=== PATIENT | female | born 2005 | race Caucasian/White ===

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

== ENCOUNTER → 2023-01-18 14:27 | Outpatient (BNVA) | payer BC, MEDICAID, SELFPAY | PROVIDERS: PCP Nurse Practitioner Family; Visit Provider Obstetrics & Gynecology | DX: Z34.90 Encounter for supervision of normal pregnancy, unspecified, unspecified trimester (principal) | CPT/HCPCS: 81000; 87086 ==

== ENCOUNTER → 2023-02-10 09:30 | Outpatient (BNVA) | payer BC, MEDICAID, SELFPAY | PROVIDERS: PCP Nurse Practitioner Family; Visit Provider Obstetrics & Gynecology | DX: Z34.90 Encounter for supervision of normal pregnancy, unspecified, unspecified trimester (principal) | CPT/HCPCS: 81000; 82950; 85025 ==

== ENCOUNTER → 2023-02-24 10:22 | Outpatient (BNVA) | payer BC, MEDICAID, SELFPAY | PROVIDERS: PCP Nurse Practitioner Family; Visit Provider Obstetrics & Gynecology | DX: Z34.90 Encounter for supervision of normal pregnancy, unspecified, unspecified trimester (principal) | CPT/HCPCS: 81000; 87086 ==

== ENCOUNTER → 2023-03-10 10:00 | Outpatient (BNVA) | payer BC, MEDICAID, SELFPAY | PROVIDERS: PCP Nurse Practitioner Family; Visit Provider Obstetrics & Gynecology | DX: Z34.90 Encounter for supervision of normal pregnancy, unspecified, unspecified trimester (principal); R82.90 Unspecified abnormal findings in urine | CPT/HCPCS: 81000; 87086 ==

== ENCOUNTER → 2023-03-27 10:20 | Outpatient (BNVA) | payer BC, MEDICAID, SELFPAY | PROVIDERS: PCP Nurse Practitioner Family; Visit Provider Obstetrics & Gynecology | DX: Z34.90 Encounter for supervision of normal pregnancy, unspecified, unspecified trimester (principal) | CPT/HCPCS: 81000; 85025 ==

== ENCOUNTER → 2023-04-10 10:17 | Outpatient (BNVA) | payer BC, MEDICAID, SELFPAY | PROVIDERS: PCP Nurse Practitioner Family; Visit Provider Obstetrics & Gynecology | DX: Z34.90 Encounter for supervision of normal pregnancy, unspecified, unspecified trimester (principal) | CPT/HCPCS: 81000; 87081 ==

== ENCOUNTER → 2023-04-17 09:14 | Outpatient (BNVA) | payer BC, MEDICAID, SELFPAY | PROVIDERS: PCP Nurse Practitioner Family; Visit Provider Obstetrics & Gynecology | DX: Z34.90 Encounter for supervision of normal pregnancy, unspecified, unspecified trimester (principal) | CPT/HCPCS: 81000 ==

== ENCOUNTER 2023-04-28 05:20 | Inpatient (IN) | payer BC, MEDICAID, SELFPAY ==
[2023-04-28] VITALS (31 sets, daily range): BP systolic 104–136; BP diastolic 38–77; PULSE 67–86; RESP 16–18; TEMP 36.7–37; O2SAT 96–100; BMI 41.1
[2023-04-28 06:51] LABS: Basophils # 0.1 10^3/uL (0.0-0.1); Basophils % 0.6 %; Eosinophils # 0.1 10^3/uL (0.0-0.8); Eosinophils % 0.7 %; Hematocrit 38.9 % (36-47); Lymphocytes # 3.5 10^3/uL (1.5-6.5); Lymphocytes % 20.8 %; Mean Corpuscular HGB Conc 32.9 g/dL (30-55); Mean Corpuscular Hemoglobin 29.2 pg (27-33); Mean Corpuscular Volume 88.8 fl (85-98); Mean Platelet Volume 9.8 fL (7.4-10.4); Monocytes # 1.2 10^3/uL (0.2-0.9); Monocytes % 7.3 %; Neutrophils # 11.75 10^3/uL (1.8-8.0); Neutrophils % 70.1 %; Nucleated Red Blood Cells % 0 %; Platelet Count 347 10^3/cmm (157-399); Red Blood Count 4.38 10^6/uL (3.85-5.65); Red Cell Distribution Width 15.8 % (12.1-15.1); White Blood Count 16.76 10^3/uL (4.5-13.0)
--- NOTE | 2023-04-28 06:55 | ANES.PREANE2 ---
Pre-Anesthetic Assessment Height/Weight: Height 1.57 m Pulse BP 82 128/73 04/28/23 05:46 04/28/23 05:46 Preop Diagnosis: breech presentation Operation Date: 04/28/23 07:00 Proposed Procedures p Section 34745,O32.1XX0(Not Applicable) - Owen Michel MD Familial anesthetic complications: none Last intake: 219904/27/22 food and drink Social No alcohol and No tobacco Exam alert, No oriented x 3, No clear to auscultation bilaterally and No regular rate & rhythm Airway Submandibular: within normal limits Cervical ROM: within normal limits Mallampati: Class I Dentition: full Pulmonary None reported CV/HEM None reported None reported Hepatic None reported GI Gastroesophageal Reflux Disease Metabolic Thyroid Disease [facility] None reported Neuropsych Anxiety and Depression Anesthetic Plan ASA status: 2 Anesthesia: Regional (specify below) (SAB) Medications/Allergies Home Medications Medication Instructions Recorded Confirmed Last Taken Type famotidine 20 mg tablet (Pepcid) 20 mg PO DAILY 10/27/22 04/24/23 Unknown History levothyroxine 50 mcg capsule 50 mcg PO DAILY #90 caps 11/30/22 04/24/23 Unknown Rx ferrous sulfate 325 mg (65 mg 325 mg PO DAILY 02/24/23 04/24/23 Unknown History iron) tablet,delayed release Allergies Allergy/AdvReac Type Severity Reaction Status Date / Time acetaminophen Allergy Severe HALLUCINATI Verified 04/24/23 08:17 ON insect venom Allergy Severe anaphylaxis Verified 04/24/23 08:17 [facility] Anesthesia Medical History Anxiety Dx'd at age 14; inpatient psychiatric treatment. Zoloft has helped her depression but not really her anxiety. She has never been on anything specifically for anxiety. Duodenitis Generalized anxiety disorder Hematochezia No pertinent past medical history neghx: htn, dm, thyroid, dtv/pe PCP: Wendi Campbell Recurrent major depression in partial remission Supervision of normal Surgical History History of tonsillectomy and adenoidectomy (~03/2021) Normal colonoscopy Family History Grandfather Diabetes Maternal Cancer Paternal--lung Hyperlipidemia Hypertension Colon cancer paternal Grandmother Diabetes Maternal Hyperlipidemia Hypertension Stroke Maternal Denies family history of Ovarian cancer CAD (coronary artery disease) Clotting disorder Chronic kidney disease (CKD) Breast cancer Bleeding disorder Uterine cancer Thyroid disease Social History Smoking and tobacco status: former smoker Adopted: No Data Anesthesia 04/28/23 05:55 Short CBC 04/28/23 Range/Units 05:55 WBC 16.76 H (4.5-13.0) 10^3/uL Hgb 12.80 (12.4-14.8) g/dL Hct 38.9 (36-47) % MCV 88.8 (85-98) fl Plt Count 347 (157-399) 10^3/cmm Neut % (Auto) 70.1 % Neut # (Auto) 11.75 H (1.8-8.0) 10^3/uL Cardiac Studies: No Data to Display
--- NOTE | 2023-04-28 06:56 | PM.OPHPUD ---
Labor & Delivery H&P Update Date of Procedure: April 28, 2023 Date H&P Performed: 04/17/23 H&P update information: I have reviewed H&P completed within last 30 days, I have examined patient prior to procedure and No changes to prior documentation Admission Diagnosis: Term Breech presentation Primary indication for procedure: Breech presentation Planned procedure: Operation Date: 04/28/23 07:00 Proposed Procedures p Section 76212,O32.1XX0(Not Applicable) - Owen Michel MD
[2023-04-28] MEDS: lactated ringers 1,000 ML 125 ML IV (07:38)
[2023-04-28] MEDS: citric acid-sodium citrate 30 mL UDC PO (07:47)
[2023-04-28] MEDS: famotidine 20 mg/2 mL INJ IVP (07:47)
[2023-04-28] MEDS: metoclopramide 5 mg/mL SDV 2 mL 10 MG IVP (07:47)
[2023-04-28] MEDS: ceFAZolin 2,000 MG in sodium chloride 0.9% (plus) 50 ML 100 MG IV (07:49)
--- NOTE | 2023-04-28 09:29 | PM.OP ---
Operative Report Date of procedure: April 28, 2023 Pre-op diagnosis: Term . Breech presentation Post-op diagnosis: Same as above Post-op findings: Breech female Procedure done: Primary low transverse delivery Surgeon: Owen Michel MD Estimated blood loss (mL): 600 IV fluids (mL): 1,000 Urine output (mL): 300 Complications: None Procedure: After assuring informed consent, the patient was taken to the operating room and anesthesia was initiated. She was placed in the dorsal supine position with a left lateral tilt. The abdomen was prepped and draped in the usual sterile manner. A time-out procedure was performed. Preop antibiotics was administered. A Pfannenstiel skin incision was made with the scalpel and carried through to the underlying layer of fascia with the Bovie. The fascia was nicked in the midline and the incision extended laterally with the Muniz scissors. The superior aspect of the fascial incision was then grasped with Chepe clamps and elevated and the underlying rectus muscle dissected off bluntly. Attention was then turned to the inferior aspect of the incision which, in similar fashion, was grasped and tented up with Chepe clamps and the rectus muscle dissected bluntly. The rectus muscles were then in the midline and the peritoneum identified, tented up and entered sharply with Metzenbaum scissors. The peritoneal incision was then extended superiorly and inferiorly with good visualization of the bladder. The Jean Marie O retractor was then inserted and the vesicouterine peritoneum identified, grasped with pickups and entered sharply with Metzenbaum scissors. This incision was then extended laterally and the bladder flap created digitally. The uterus incised in a low transverse fashion with the scalpel. The uterine incision was then extended with the bandage scissors. The infant was then delivered in the breec presentation atraumatically buttocks appeared on the incision. While supporting the body, then pressure was exerted in the popliteal space of the knee. Then flexion of the knee follows, and the lower leg is swept medially down and out of the vagina using the Pinard maneuver. At that time time maternal expulsive efforts used along with gentle downward and outward traction of the infant until the scapula and axilla are visible. With a towel grasping the hips, I kept the body below the level of the vagina and gently rotated the baby counterclockwise and then clockwise, with the shoulder blades showing. Using a free hand, I found the right shoulder and swept the upper arm down across the chest and out. I did the same with the left shoulder. With constant uterine pressure to keep the head flexed, I suctioned the oropharynx. . The nose and the mouth were suctioned with bulb and the cord clamped and cut. The cord was normal and had three vessels. Amniotic fluid was clear. The placenta was then removed manually and the uterus exteriorized and cleared of all clots and debris. The uterine incision was repaired with 0 Vicryl in a running-locked fashion. A second layer of the same suture was used to obtain excellent hemostasis. The gutters were cleared of all clots. The uterus was then returned to the abdomen. The rectus muscles were approximated with 3-0 chromic gut. Exparel was infiltrated at the adipose tissue level for pain management. The fascia was reapproximated with 0 Vicryl in an interrupted running fashion. The skin was closed with Insorb?s subcuticular absorbable traci. The patient tolerated the procedure well. The sponge, lap and needle counts were correct times three.
--- NOTE | 2023-04-28 09:40 | PC.NURSE ---
patient in PACU. RN at bedside
--- NOTE | 2023-04-28 13:09 | ANE.PACU2 ---
Inpatient post-anesthesia follow up: Airway intact: Yes Vital signs: Temperature Pulse Rate 79 Respiratory Rate 17 Blood Pressure 109/56 Pulse Oximetry Oxygen Delivery Me thod Room Air Oxygen Flow Rate Fraction of Inspir ed Oxygen Hydration adequate: Yes Nausea and vomiting: No Pain level: 1 Mental status: Baseline
[2023-04-28] MEDS: ketorolac 30 mg/mL INJ IVP (15:52)
[2023-04-28] MEDS: dextrose 5%-lactated ringers 1,000 ML 125 ML IV (16:34)
[2023-04-28] MEDS: docusate sodium 100 mg Capsule PO (20:35)
[2023-04-28 21:56] LABS: Mean Corpuscular HGB Conc 31.9 g/dL (30-55); Mean Corpuscular Hemoglobin 28.8 pg (27-33); Mean Corpuscular Volume 90.2 fl (85-98); Mean Platelet Volume 9.6 fL (7.4-10.4); Platelet Count 297 10^3/cmm (157-399); Red Cell Distribution Width 15.7 % (12.1-15.1); White Blood Count 15.82 10^3/uL (4.5-13.0)
[2023-04-29] MEDS: sodium chloride 0.9% 500 ML 999 ML IV (02:17)
[2023-04-29 03:30] VITALS: BP 110/60; PULSE 84
[2023-04-29 03:56] VITALS: BP 110/60; PULSE 84; PULSE 89; RESP 16; TEMP 36.7; TEMP 36.8; O2SAT 96
[2023-04-29] MEDS: ketorolac 30 mg/mL INJ IVP (04:23)
[2023-04-29] MEDS: prenatal vitamin Capsule 1 CAP PO (09:06)
[2023-04-29] MEDS: ibuprofen 800 mg tablet PO ×3 (09:06→20:19)
[2023-04-29] MEDS: docusate sodium 100 mg Capsule PO ×2 (09:06→18:25)
[2023-04-29 09:14] VITALS: BP 111/63; PULSE 80; RESP 17; TEMP 36.4
--- NOTE | 2023-04-29 11:05 | PM.PN ---
Subjective Subjective: Mrs. Aagrwal 17-year-old female G1, P1 status post primary low-transverse delivery Vitals/I&O/Wt Last Vital Signs Temp 97.6 F 04/29/23 09:14 Pulse 80 04/29/23 09:14 Resp 17 04/29/23 09:14 BP 111/63 04/29/23 09:14 Pulse Ox 96 04/29/23 03:56 O2 Del Method Room Air 04/29/23 09:14 04/28/23 04/29/23 04/29/23 22:59 06:59 14:59 Output Total 395 / 1345 120 / 1465 Balance -395 / -1295 -120 / -1415 Weight last 48 hrs Weight 102.058 kg Physical Exam Narrative: GA; alert and oriented x 3 HEENT: normal Breasts: engorged Nipples - skin intact Lungs; clear to auscultation Heart: regular rhythm, no murmurs. Abd: Appropriately tender. BS+. Uterine fundus below umbilicus. No Fundal Tenderness. Incision clean and dry, no redness, pain or ed Perineum: normal lochia. Extremities: no edema, no cyanosis, no tenderness. Urinary Catheter Management: Guerrero: Cath Placed During This Visit: yes Reason for Continuing Indwelling Catheter: Accurate Measurement of Urinary Output in Critically Ill Patients Urinary Catheter Date of Insertion: 04/28/23 Urinary Catheter Time of Insertion: 08:15 Data 04/28/23 21:10 A&P Assessment and plan (1) Status post delivery: Mrs. Stefano Meza-year-old female G1, P1 status post primary low-transverse delivery postoperative day 1. She is afebrile and hemodynamically stable. Tolerating diet well. Ambulating without difficulty. Pain well under control. (2) Breech presentation of fetus: Plan Continue postop observation. Encourage ambulation. Plan discharge home tomorrow Attestations Medical Necessity Statement*: In my professional opinion per admitting diagnosis Coding Level of Care Code Acute Code for Chg Fwd Diagnoses Status post delivery Z98.891 Breech presentation of fetus O32.1XX0
[2023-04-29 11:46] LABS: Basophils # 0.1 10^3/uL (0.0-0.1); Basophils % 0.6 %; Eosinophils # 0.1 10^3/uL (0.0-0.8); Eosinophils % 0.8 %; Hematocrit 34.8 % (36-47); Lymphocytes # 2.2 10^3/uL (1.5-6.5); Lymphocytes % 16.7 %; Mean Corpuscular HGB Conc 32.5 g/dL (30-55); Mean Corpuscular Hemoglobin 29.4 pg (27-33); Mean Corpuscular Volume 90.4 fl (85-98); Mean Platelet Volume 9.3 fL (7.4-10.4); Monocytes % 7.6 %; Neutrophils # 9.65 10^3/uL (1.8-8.0); Neutrophils % 73.9 %; Nucleated Red Blood Cells % 0 %; Platelet Count 292 10^3/cmm (157-399); Red Blood Count 3.85 10^6/uL (3.85-5.65); Red Cell Distribution Width 15.8 % (12.1-15.1); White Blood Count 13.06 10^3/uL (4.5-13.0)
--- NOTE | 2023-04-29 13:41 | PC.NURSE ---
pt ambulating well, SCDs discontinued per protocol
[2023-04-29 16:07] VITALS: BP 115/62; PULSE 83
[2023-04-29] MEDS: HYDROcodone-acetaminophen 5-325 mg Tablet PO (16:23)
[2023-04-29 23:15] VITALS: BP 125/81; PULSE 64; RESP 16; TEMP 36.6; O2SAT 99
[2023-04-30] MEDS: HYDROcodone-acetaminophen 5-325 mg Tablet PO ×2 (01:20→06:24)
[2023-04-30 04:47] VITALS: BP 109/62; PULSE 65; RESP 16; TEMP 36.6; O2SAT 94
[2023-04-30 08:55] VITALS: BP 105/65; PULSE 63; RESP 17; TEMP 36.6
[2023-04-30] MEDS: ibuprofen 800 mg tablet PO (09:07)
[2023-04-30] MEDS: docusate sodium 100 mg Capsule PO (09:08)
[2023-04-30] MEDS: prenatal vitamin Capsule 1 CAP PO (09:08)
--- NOTE | 2023-04-30 10:44 | PC.NURSE ---
Patient reluctant to move, assisted patient with moving to chair.
--- NOTE | 2023-04-30 12:19 | PM.OBGYDC ---
Discharge Providers [employer]RA[employer]IER Date of Admission: 04/28/23 05:20 Date of Discharge: 04/30/23 Attending Provider at Admission: Owen Michel MD Attending Provider at Discharge: Owen Michel MD Primary FARMER AND GRAZIER: Dr. Tomas Vergara Primary Care Provider: STEPHANIE Lombardi Diagnoses at Discharge Discharge Diagnosis (1) Status post delivery: Status: Acute (2) Breech presentation of fetus: Status: Acute Reason for Visit Reason for Visit: Induction Hospital Course Hospital Course Mrs. Agarwal 17-year-old female G1, P0 with term admitted for planned primary low transverse delivery, due to breech presentation. The delivery was performed without complication. /postop observation was uneventful. She is afebrile hemodynamically stable postoperative day 2. Tolerating diet well. Ambulating without difficulty. She was counseled regarding pelvic rest for 6 weeks (no sex, no tampons, no vaginal douches). Return to the emergency room if any fever, increased bleeding or pain. Information Peripartum Data: Delivery Method: Physical Exam Narrative: GA; alert and oriented x 3 HEENT: normal Breasts: engorged Nipples - skin intact Lungs; clear to auscultation Heart: regular rhythm, no murmurs. Abd: Appropriately tender. BS+. Uterine fundus below umbilicus. No Fundal Tenderness. Incision clean and dry, no redness, pain or ed Perineum: normal lochia. Extremities: no edema, no cyanosis, no tenderness. Urinary Catheter Management: Guerrero: Cath Placed During This Visit: yes, but has since been removed by the nurse Reason for Continuing Indwelling Catheter: Decision to DC Catheter Urinary Catheter Date of Insertion: 04/28/23 Urinary Catheter Time of Insertion: 08:15 Date Urinary Catheter Removed: 04/29/23 Time Urinary Catheter Discontinued: 14:05 History History History 2 Term 0 0 Miscarriages/Ectopic 1 Living Children 0 Discharge Data Studies Completed and Pending Laboratory Results WBC 13.06 10^3/uL (4.5-13.0) H 04/29/23 11:40 RBC 3.85 10^6/uL (3.85-5.65) 04/29/23 11:40 Hgb 11.30 g/dL (12.4-14.8) L 04/29/23 11:40 Hct 34.8 % (36-47) L 04/29/23 11:40 MCV 90.4 fl (85-98) 04/29/23 11:40 MCH 29.4 pg (27-33) 04/29/23 11:40 MCHC 32.5 g/dL (30-55) 04/29/23 11:40 RDW 15.8 % (12.1-15.1) H 04/29/23 11:40 Plt Count 292 10^3/cmm (157-399) 04/29/23 11:40 MPV 9.3 fL (7.4-10.4) 04/29/23 11:40 Neut % (Auto) 73.9 % 04/29/23 11:40 Lymph % (Auto) 16.7 % 04/29/23 11:40 [place] % (Auto) 7.6 % 04/29/23 11:40 Eos % (Auto) 0.8 % 04/29/23 11:40 Baso % (Auto) 0.6 % 04/29/23 11:40 Neut # (Auto) 9.65 10^3/uL (1.8-8.0) H 04/29/23 11:40 Lymph # (Auto) 2.2 10^3/uL (1.5-6.5) 04/29/23 11:40 [place] # (Auto) 1.0 10^3/uL (0.2-0.9) H 04/29/23 11:40 Eos # (Auto) 0.1 10^3/uL (0.0-0.8) 04/29/23 11:40 Baso # (Auto) 0.1 10^3/uL (0.0-0.1) 04/29/23 11:40 Nucleated RBC % (auto) 0 % 04/29/23 11:40 Nucleated RBCs # 0.0 /100WBC 04/29/23 11:40 Blood Type A Positive 04/28/23 05:55 Rho(D) Type Positive 04/28/23 05:55 Antibody Screen Negative 04/28/23 05:55 Antibody Identification Cancelled 04/28/23 05:55 Vitals Last Vital Signs Temp 97.8 F 04/30/23 08:55 Pulse 63 04/30/23 08:55 Resp 17 04/30/23 08:55 BP 105/65 04/30/23 08:55 Pulse Ox 94 04/30/23 04:47 O2 Del Method Room Air 04/30/23 04:47 Discharge Plan Discharge Patient Disposition: Home Condition: Stable Prescriptions: New hydrocodone-acetaminophen 5-325 mg tablet 1 tab PO Q4H PRN (Reason: pain) Qty: 30 0RF ibuprofen 800 mg tablet 800 mg PO TID PRN (Reason: pain) Qty: 60 0RF Continued ferrous sulfate 325 mg (65 mg iron) tablet,delayed release (DR/EC) 325 mg PO DAILY famotidine [Pepcid] 20 mg tablet 20 mg PO DAILY levothyroxine 50 mcg capsule 50 mcg PO DAILY Qty: 90 5RF Discharge Orders: Discharge Order (Routine); Ordered 04/30/23 Ordered By: Owen Michel Referrals: Owen Michel MD [Physician] - 2 weeks Discharge Diet: Usual diet Discharge Activity: Limit activity as instructed Patient Instructions: Depression (DC), Bleeding (DC), Preeclampsia and Eclampsia After Delivery (GEN), OB Discharge Report, OB Food/Drug Interaction Guide, Opioid Safety, OB Home Care, OB Vaginal Deliveries - [facility] Activity Restrictions/Additional Instructions: 1. Please call [facility] on next working day to make your post-operative appointment in 2 weeks. 2. Please stay home until you come back to the clinic on first post-hospatilization check up. 3. Please follow instructions on your medications CAREFULLY. 4. If you have abdominal incision, do not cover it unless dressing is necessary because of drainage. OK to shower, but avoid bath. Leave steri-strips until they fall off. If they are still on one week after surgery, you may remove them. 5. If you had vaginal surgery or vaginal repair, Dr. Michel may instruct you to take SITZ bath. 6. Yellow, blood tinged odorous vaginal discharge is usually normal after hysterectomy or vaginal surgeries. 7. No SEXUAL INTERCOURSE, tampons, or douches until you are completely released from the post-operative care. 8. Avoid constipation by eating right and maybe using some Metamucil or Milk of Magnesia. 9. All prescription refills are given during the working hours. Please do no wait till it runs out. Call the clinic at [phone] before your medication runs out. The clinic will get in touch with your doctor to prescribe medications if necessary. 10. Please remain within 40 mile radius from our hospital because emergencies do happen now and then during the post-operative period. 11. If you have stairs at home, take one step at a time slowly and minimize the number of trips. It helps to stay in one floor for the next few days. No lifting except what you can lift by one hand until you are released from the post-operative care. 12. Driving is discouraged until you are well healed. It may be 3-4 weeks before you feel strong enough to drive. You should be able to turn and look through the rear window without pain and you should be able to push the brake pedal very hard without pain before you drive. No fast rules, but SAFETY should be your primary concern. DO NOT drive if you are on sedating medications such as narcotics. 13. Call the clinic (during working hours) to make urgent appointment or go to the Emergency room, if any of the following occurs: i. Vaginal bleeding becomes heavy, more than a period. ii. Incision becomes red and sore, or drains pus. iii. Your TEMPERATURE is over 100.4F or you have chill. iv. IV site becomes red and swollen (a little ``knot?? is usually OK) v. Persistent nausea and vomiting vi. Persistent constipation or diarrhea vii. Rash or allergic reaction to medications. Discharge Attestations [employer]IER Time Spent in Discharge Care*: greater than 30 min Coding Level of Care Code Acute Code for Chg Fwd Diagnoses Status post delivery Z98.891 Breech presentation of fetus O32.1XX0
[2023-04-30 14:30] VITALS: BP 116/80; PULSE 87; RESP 19; TEMP 37.6; O2SAT 96
== END 2023-04-30 14:45 | disposition home or self-care (01) | DRG 788 ==
PROVIDERS: Admitting Provider Obstetrics & Gynecology; PCP Nurse Practitioner Family; Visit Provider Obstetrics & Gynecology
PROC: 10D00Z1 Extraction of Products of Conception, Low, Open Approach (ICD-10-PCS; CPT 59514; principal; 2023-04-28 07:00)
DX: O32.1XX0 Maternal care for breech presentation, not applicable or unspecified (principal); Z3A.38 38 weeks gestation of pregnancy; Z37.0 Single live birth; K21.9 Gastro-esophageal reflux disease without esophagitis; O99.284 Endocrine, nutritional and metabolic diseases complicating childbirth; E03.9 Hypothyroidism, unspecified; O99.344 Other mental disorders complicating childbirth; F41.1 Generalized anxiety disorder; F33.41 Major depressive disorder, recurrent, in partial remission; Z87.891 Personal history of nicotine dependence; O75.89 Other specified complications of labor and delivery; Z3A.39 39 weeks gestation of pregnancy
CPT/HCPCS: 36415; 51702; 59025; 59409; 85025; 85027; 86850; 86900; 96374; 96376; C9290; J0690; J1885; J2274; J2371; J2405; J2765; J3490; J7030; J7040; J7120; J7121

== ENCOUNTER 2023-04-30 23:53 | Emergency (ER) | payer BC, MEDICAID, SELFPAY ==
--- NOTE | 2023-05-01 00:03 | XRR_ITS ---
PROCEDURE INFORMATION: Exam: XR Chest Exam date and time: 05/01/2023 12:23 AM Age: 17 years old Clinical indication: Cough and fever; Patient HX: Cough with fever; Additional info: Cough fever TECHNIQUE: Imaging protocol: Radiologic exam of the chest. Views: 1 view. COMPARISON: CT cervical spin wo con* [id number] 03/15/2019 11:57 PM FINDINGS: Lungs: No consolidation, mass, or pulmonary edema. Pleural spaces: Unremarkable. No pleural effusion. No pneumothorax. Heart/Mediastinum: Unremarkable. No cardiomegaly. Bones/joints: Unremarkable. XR/XR chest 1V portable [id number] IMPRESSION: No acute findings.
[2023-05-01 00:05] VITALS: BP 127/83; PULSE 100; TEMP 37.8; O2SAT 94; BMI 36.3
--- NOTE | 2023-05-01 00:20 | ED_ITS ---
Documented by User: BALDEMAR Shipman 05/01/23 01:13 HPI - Fever General: Chief Complaint: Fever Stated Complaint: Fever/Cough Time Seen by Provider: 05/01/23 00:02 History of Present Illness: Patient is status post section on 04/28/2023. Patient notes that that day she developed a nagging cough that was dry. This developed during her C- section that was performed that day. Patient was discharged home today with the . She had a fever of 99-100. Patient has developed this very wet productive cough with thick green sputum. She reports headache, sore throat and fever. Patient reports a history of hypothyroidism. Patient's for GERD She denies any chest pain shortness of breath She denies any nausea vomiting or diarrhea Denies any known COVID exposure Associated symptoms: Reports chills; Deny abdominal pain, flank pain, chest pain, confusion, diarrhea, dysuria, extremity pain, headache(s), nasal congestion, nausea, sinus pain or vomiting Review of Systems General: Reports: 10 or more systems reviewed and unremarkable except in HPI and below Const: Reports: fever(s), chills and fatigue; Denies: change in appetite or change in weight Eyes: Denies: change in vision, eye discomfort, eye discharge or eye redness ENMT: Denies: throat pain, enlarged tonsils, odynophagia, hoarseness, ear or mastoid pain, ear discharge, change in hearing, tinnitus, nasal discharge, nasal congestion, post nasal drip or sinus pain Card: Denies: chest pain, palpitations, irregular heart rhythm, edema, dyspnea on exertion, orthopnea or leg pain with exertion Resp: Reports: productive cough and change in phlegm color; Denies: dyspnea, non-productive cough, wheezing, stridor or chest congestion GI: Denies: abdominal pain, nausea, vomiting, dysphagia, diarrhea, constipation, bloating, GI cramping or hematochezia : Denies: flank pain, difficulty voiding, dysuria, urinary frequency, urinary urgency, urinary hesitancy, oliguria or hematuria Musc: Denies: neck pain, back pain, extremity pain, joint pain, joint swelling, joint redness, joint warmth or muscle weakness Skin/Breast: Denies: rash, pruritus, erythema, photosensitivity or new lesions Neuro: Denies: headache(s), numbness in extremities, weakness in extremities, sensory changes, lack of coordination, difficulty walking, frequent falls, dizziness, confusion, Slurred speech present, difficulty communicating thoughts, seizure-like activity or involuntary movements Endo: Denies: polyuria, polydipsia or tired all the time Kevin/Lymph: Denies: easy bruising or easy bleeding PFSH ED PFSH: Medical History Anxiety Dx'd at age 14; inpatient psychiatric treatment. Zoloft has helped her depression but not really her anxiety. She has never been on anything specifically for anxiety. Duodenitis Generalized anxiety disorder Hematochezia No pertinent past medical history neghx: htn, dm, thyroid, dtv/pe PCP: Wendi Campbell Recurrent major depression in partial remission Supervision of normal Surgical History History of tonsillectomy and adenoidectomy (~03/2021) Normal colonoscopy Family History Grandfather Diabetes Maternal Cancer Paternal--lung Hyperlipidemia Hypertension Colon cancer paternal Grandmother Diabetes Maternal Hyperlipidemia Hypertension Stroke Maternal Denies family history of Ovarian cancer CAD (coronary artery disease) Clotting disorder Chronic kidney disease (CKD) Breast cancer Bleeding disorder Uterine cancer Thyroid disease Social History Smoking and tobacco status: former smoker Adopted: No Physical Exam Const: COMMON NORMALS: no acute distress, patient oriented x3 and alert GENERAL APPEARANCE: cooperative ORIENTATION/CONSCIOUSNESS: Yes awake, Yes oriented to person, Yes oriented to place and Yes oriented to time HENMT: COMMON NORMALS: normocephalic and atraumatic HEAD & SCALP: normocephalic and atraumatic FACE & SINUS: normal facial exam MOUTH: Normal oral and palatal mucosa present THROAT: posterior oropharynx normal Eye: COMMON NORMALS: Equal, round and reactive pupils present, EOMs intact bilaterally, conjunctivae normal and no scleral icterus GENERAL EYE: appearance normal, both eyes and all related structures ALIGNMENT: Yes alignment normal PERIORBITAL: periorbital findings normal CONJUNCTIVA: Yes conjunctivae normal PUPIL: Yes Equal, round and reactive pupils present Neck/C-Spine: COMMON NORMALS: full ROM GENERAL: Yes normal visual inspection Lymph: LYMPHATIC: no lymphadenopathy noted Chest: COMMONS NORMALS: normal inspection of the chest Breast/axilla inspection: Yes no chest deformity, asymmetry, normal contours, no nodules, masses, tenderness Resp: COMMON NORMALS: normal respiratory effort, No retractions, No use of accessory muscles and clear to auscultation bilaterally EFFORT & INSPECTION: Yes able to speak in complete sentences and Yes symmetric chest movement AUSCULTATION: clear to auscultation bilaterally Cardio: COMMON NORMALS: regular rate, regular rhythm and Peripheral pulses 2+ throughout RATE: regular rate RHYTHM: regular rhythm PERIPHERAL PULSES: Peripheral pulses 2+ throughout GI: COMMON NORMALS: Normal to inspection, nondistended, normoactive bowel sounds present, Soft to palpation, non-tender and No hepatosplenomegaly present INSPECTION: Yes normal to inspection AUSCULTATION: Yes normoactive bowel sounds PALPATION: Yes Soft to palpation and Yes No hepatosplenomegaly present RECTAL EXAM: deferred Extremity: COMMON NORMALS: normal to inspection GENERAL: Yes normal exam except as noted Neuro: COMMON NORMALS: patient oriented x3 SENSORIUM/ORIENTATION: Yes alert, Yes oriented to person, Yes oriented to place and Yes oriented to time CRANIAL NERVES: Yes CN normal except as noted Psych: COMMON NORMALS: mental status grossly normal, Normal thought process present, cooperative, activity/motor behavior normal, denies homicidal ideation and denies suicidal ideation THOUGHT PROCESS: Normal thought process present Skin: COMMON NORMALS: no rashes or lesions noted, no wounds and turgor normal GENERAL SKIN EXAM: no rashes or lesions noted and turgor normal Course Vital Signs: Vital signs: Vital Signs Temperature 100.1 F H 05/01/23 00:05 Pulse Rate 100 05/01/23 00:05 Blood Pressure 127/83 05/01/23 00:05 Pulse Oximetry 94 05/01/23 00:05 Oxygen Delivery Me thod Room Air 05/01/23 00:05 MDM - Fever Medical Decision Making Was evaluated in the emergency department days status post section live . Patient presents today with cough, sputum production, and fever. Tmax at home was 100.9. Currently 100.1. Patient's fever was treated with ibuprofen due to allergy to Tylenol. Differential diagnosis pneumonia, COVID, viral illness. Patient underwent COVID testing as well as CBC CMP and chest x-ray. Chest x-ray reveals no acute findings, COVID test was negative and CBC reveals no leukocytosis. Lab Data 05/01/23 00:50 05/01/23 00:50 Radiology Impressions Chest X-Ray 05/01/23 00:03 IMPRESSION: No acute findings. Laboratory Results WBC 10.39 10^3/uL (4.5-13.0) 05/01/23 00:50 RBC 3.81 10^6/uL (3.85-5.65) L 05/01/23 00:50 Hgb 11.10 g/dL (12.4-14.8) L 05/01/23 00:50 Hct 34.7 % (36-47) L 05/01/23 00:50 MCV 91.1 fl (85-98) 05/01/23 00:50 MCH 29.1 pg (27-33) 05/01/23 00:50 MCHC 32.0 g/dL (30-55) 05/01/23 00:50 RDW 15.3 % (12.1-15.1) H 05/01/23 00:50 Plt Count 296 10^3/cmm (157-399) 05/01/23 00:50 MPV 9.4 fL (7.4-10.4) 05/01/23 00:50 Neut % (Auto) 70.4 % 05/01/23 00:50 Lymph % (Auto) 18.0 % 05/01/23 00:50 [place] % (Auto) 8.1 % 05/01/23 00:50 Eos % (Auto) 2.2 % 05/01/23 00:50 Baso % (Auto) 0.7 % 05/01/23 00:50 Neut # (Auto) 7.32 10^3/uL (1.8-8.0) 05/01/23 00:50 Lymph # (Auto) 1.9 10^3/uL (1.5-6.5) 05/01/23 00:50 [place] # (Auto) 0.8 10^3/uL (0.2-0.9) 05/01/23 00:50 Eos # (Auto) 0.2 10^3/uL (0.0-0.8) 05/01/23 00:50 Baso # (Auto) 0.1 10^3/uL (0.0-0.1) 05/01/23 00:50 Nucleated RBC % (auto) 0 % 05/01/23 00:50 Nucleated RBCs # 0.0 /100WBC 05/01/23 00:50 Sodium 138 mmol/L (136-145) 05/01/23 00:50 Potassium 3.7 mmol/L (3.5-5.1) 05/01/23 00:50 Chloride 105 mmol/L (98-107) 05/01/23 00:50 Carbon Dioxide 23 mmol/L (22-29) 05/01/23 00:50 Anion Gap 13.7 (5-19) 05/01/23 00:50 BUN 7 mg/dL (6-20) 05/01/23 00:50 Creatinine 0.7 mg/dL (0.5-0.9) 05/01/23 00:50 GFR Calculation 107.8 mL/min (90-130) 05/01/23 00:50 Glucose 96 mg/dL (65-115) 05/01/23 00:50 Calculated Osmolality 284 mOsm/kg (285-295) L 05/01/23 00:50 Calcium 8.6 mg/dL (8.5-10.5) 05/01/23 00:50 Total Bilirubin 0.2 mg/dL (0.15-1.2) 05/01/23 00:50 AST 13 U/L (0-32) 05/01/23 00:50 ALT 7 U/L (0-33) 05/01/23 00:50 Alkaline Phosphatase 108 U/L (35-105) H 05/01/23 00:50 Total Protein 5.8 g/dL (6.6-8.7) L 05/01/23 00:50 Albumin 3.3 g/dL (3.5-5.2) L 05/01/23 00:50 Globulin 2.5 g/dL (1.3-4.6) 05/01/23 00:50 SARS-CoV-2 Ag (Rapid) negative (Negative) 05/01/23 00:22 Discharge Plan Discharge Patient Disposition: Home Clinical Impression: Upper respiratory infection Condition: Stable Prescriptions: No Action ferrous sulfate 325 mg (65 mg iron) tablet,delayed release (DR/EC) 325 mg PO DAILY famotidine [Pepcid] 20 mg tablet 20 mg PO DAILY levothyroxine 50 mcg capsule 50 mcg PO DAILY Qty: 90 5RF ibuprofen 800 mg tablet 800 mg PO TID PRN (Reason: pain) Qty: 60 0RF hydrocodone-acetaminophen 5-325 mg tablet 1 tab PO Q4H PRN (Reason: pain) Qty: 30 0RF Discharge Orders: Discharge ED (Routine); Ordered 05/01/23 Ordered By: Anupam Pena Referrals: Tg Campbell FNP [Primary Care Provider] - 1-3 days Discharge Diet: Advance as tolerated Discharge Activity: Resume usual activity Patient Instructions: Upper Respiratory Infection (ED) Coding Level of Care Code ED Biology Instructor for Chg Fwd Documented by User: Anupam Pena MD 05/01/23 01:40 HPI - Fever General: Chief Complaint: Fever Stated Complaint: Fever/Cough Time Seen by Provider: 05/01/23 00:02 [facility] ED PFSH: Medical History Anxiety Dx'd at age 14; inpatient psychiatric treatment. Zoloft has helped her depression but not really her anxiety. She has never been on anything specifically for anxiety. Duodenitis Generalized anxiety disorder Hematochezia No pertinent past medical history neghx: htn, dm, thyroid, dtv/pe PCP: Wendi Campbell Recurrent major depression in partial remission Supervision of normal Surgical History History of tonsillectomy and adenoidectomy (~03/2021) Normal colonoscopy Family History Grandfather Diabetes Maternal Cancer Paternal--lung Hyperlipidemia Hypertension Colon cancer paternal Grandmother Diabetes Maternal Hyperlipidemia Hypertension Stroke Maternal Denies family history of Ovarian cancer CAD (coronary artery disease) Clotting disorder Chronic kidney disease (CKD) Breast cancer Bleeding disorder Uterine cancer Thyroid disease Social History Smoking and tobacco status: former smoker Adopted: No Course Vital Signs: Vital signs: Vital Signs Temperature 100.1 F H 05/01/23 00:05 Pulse Rate 100 05/01/23 00:05 Blood Pressure 127/83 05/01/23 00:05 Pulse Oximetry 94 05/01/23 00:05 Oxygen Delivery Me thod Room Air 05/01/23 00:05 MDM - Fever Medical Decision Making Was evaluated in the emergency department days status post section live . Patient presents today with cough, sputum production, and fever. Tmax at home was 100.9. Currently 100.1. Patient's fever was treated with ibuprofen due to allergy to Tylenol. Differential diagnosis pneumonia, COVID, viral illness. Patient underwent COVID testing as well as CBC CMP and chest x-ray. Chest x-ray reveals no acute findings, COVID test was negative and CBC reveals no leukocytosis. Patient presents here with likely viral upper respiratory infection x-ray blood works all normal she is stable for discharge she is follow-up PCP return if worsening Lab Data 05/01/23 00:50 05/01/23 00:50 Radiology Impressions Chest X-Ray 05/01/23 00:03 IMPRESSION: No acute findings. Laboratory Results WBC 10.39 10^3/uL (4.5-13.0) 05/01/23 00:50 RBC 3.81 10^6/uL (3.85-5.65) L 05/01/23 00:50 Hgb 11.10 g/dL (12.4-14.8) L 05/01/23 00:50 Hct 34.7 % (36-47) L 05/01/23 00:50 MCV 91.1 fl (85-98) 05/01/23 00:50 MCH 29.1 pg (27-33) 05/01/23 00:50 MCHC 32.0 g/dL (30-55) 05/01/23 00:50 RDW 15.3 % (12.1-15.1) H 05/01/23 00:50 Plt Count 296 10^3/cmm (157-399) 05/01/23 00:50 MPV 9.4 fL (7.4-10.4) 05/01/23 00:50 Neut % (Auto) 70.4 % 05/01/23 00:50 Lymph % (Auto) 18.0 % 05/01/23 00:50 [place] % (Auto) 8.1 % 05/01/23 00:50 Eos % (Auto) 2.2 % 05/01/23 00:50 Baso % (Auto) 0.7 % 05/01/23 00:50 Neut # (Auto) 7.32 10^3/uL (1.8-8.0) 05/01/23 00:50 Lymph # (Auto) 1.9 10^3/uL (1.5-6.5) 05/01/23 00:50 [place] # (Auto) 0.8 10^3/uL (0.2-0.9) 05/01/23 00:50 Eos # (Auto) 0.2 10^3/uL (0.0-0.8) 05/01/23 00:50 Baso # (Auto) 0.1 10^3/uL (0.0-0.1) 05/01/23 00:50 Nucleated RBC % (auto) 0 % 05/01/23 00:50 Nucleated RBCs # 0.0 /100WBC 05/01/23 00:50 Sodium 138 mmol/L (136-145) 05/01/23 00:50 Potassium 3.7 mmol/L (3.5-5.1) 05/01/23 00:50 Chloride 105 mmol/L (98-107) 05/01/23 00:50 Carbon Dioxide 23 mmol/L (22-29) 05/01/23 00:50 Anion Gap 13.7 (5-19) 05/01/23 00:50 BUN 7 mg/dL (6-20) 05/01/23 00:50 Creatinine 0.7 mg/dL (0.5-0.9) 05/01/23 00:50 GFR Calculation 107.8 mL/min (90-130) 05/01/23 00:50 Glucose 96 mg/dL (65-115) 05/01/23 00:50 Calculated Osmolality 284 mOsm/kg (285-295) L 05/01/23 00:50 Calcium 8.6 mg/dL (8.5-10.5) 05/01/23 00:50 Total Bilirubin 0.2 mg/dL (0.15-1.2) 05/01/23 00:50 AST 13 U/L (0-32) 05/01/23 00:50 ALT 7 U/L (0-33) 05/01/23 00:50 Alkaline Phosphatase 108 U/L (35-105) H 05/01/23 00:50 Total Protein 5.8 g/dL (6.6-8.7) L 05/01/23 00:50 Albumin 3.3 g/dL (3.5-5.2) L 05/01/23 00:50 Globulin 2.5 g/dL (1.3-4.6) 05/01/23 00:50 SARS-CoV-2 Ag (Rapid) negative (Negative) 05/01/23 00:22 Discharge Plan Discharge Patient Disposition: Home Clinical Impression: Upper respiratory infection Condition: Stable Prescriptions: No Action ferrous sulfate 325 mg (65 mg iron) tablet,delayed release (DR/EC) 325 mg PO DAILY famotidine [Pepcid] 20 mg tablet 20 mg PO DAILY levothyroxine 50 mcg capsule 50 mcg PO DAILY Qty: 90 5RF ibuprofen 800 mg tablet 800 mg PO TID PRN (Reason: pain) Qty: 60 0RF hydrocodone-acetaminophen 5-325 mg tablet 1 tab PO Q4H PRN (Reason: pain) Qty: 30 0RF Discharge Orders: Discharge ED (Routine); Ordered 05/01/23 Ordered By: Anupam Pena Referrals: Tg Campbell FNP [Primary Care Provider] - 1-3 days Discharge Diet: Advance as tolerated Discharge Activity: Resume usual activity Patient Instructions: Upper Respiratory Infection (ED) Coding Level of Care Code ED Biology Instructor for Li Steele
[2023-05-01] MEDS: ibuprofen 800 mg tablet PO (00:35)
[2023-05-01 01:02] LABS: Basophils # 0.1 10^3/uL (0.0-0.1); Basophils % 0.7 %; Eosinophils # 0.2 10^3/uL (0.0-0.8); Eosinophils % 2.2 %; Hematocrit 34.7 % (36-47); Lymphocytes # 1.9 10^3/uL (1.5-6.5); Mean Corpuscular Hemoglobin 29.1 pg (27-33); Mean Corpuscular Volume 91.1 fl (85-98); Mean Platelet Volume 9.4 fL (7.4-10.4); Monocytes # 0.8 10^3/uL (0.2-0.9); Monocytes % 8.1 %; Neutrophils # 7.32 10^3/uL (1.8-8.0); Neutrophils % 70.4 %; Nucleated Red Blood Cells % 0 %; Platelet Count 296 10^3/cmm (157-399); Red Blood Count 3.81 10^6/uL (3.85-5.65); Red Cell Distribution Width 15.3 % (12.1-15.1); White Blood Count 10.39 10^3/uL (4.5-13.0)
[2023-05-01 01:10] LABS: SARS Covid-2 Antigen negative (Negative)
[2023-05-01 01:22] LABS: Alanine Aminotransferase 7 U/L (0-33); Albumin Level 3.3 g/dL (3.5-5.2); Alkaline Phosphatase 108 U/L (35-105); Anion Gap 13.7 (5-19); Aspartate Amino Transferase 13 U/L (0-32); Blood Urea Nitrogen 7 mg/dL (6-20); Calcium 8.6 mg/dL (8.5-10.5); Carbon Dioxide 23 mmol/L (22-29); Chloride 105 mmol/L (98-107); Creatinine Clr Calc Pharmacy 150.8026; Globulin 2.5 g/dL (1.3-4.6); Glomerular Filtration Rate 107.8 mL/min (90-130); Glucose 96 mg/dL (65-115); Osmolality Calculated 284 mOsm/kg (285-295); Potassium 3.7 mmol/L (3.5-5.1); Sodium 138 mmol/L (136-145); Total Bilirubin 0.2 mg/dL (0.15-1.2); Total Protein 5.8 g/dL (6.6-8.7)
[2023-05-01 02:18] VITALS: PULSE 86; RESP 18; O2SAT 96
== END 2023-05-01 02:17 | disposition home or self-care (01) ==
PROVIDERS: Nurse Practitioner; Emergency Provider Emergency Medicine; PCP Nurse Practitioner Family
DX: J06.9 Acute upper respiratory infection, unspecified (principal); Z20.822 Contact with and (suspected) exposure to COVID-19; Z87.891 Personal history of nicotine dependence
CPT/HCPCS: 36415; 71045; 80053; 85025; 87426; 99284

== ENCOUNTER → 2023-05-02 13:09 | Outpatient (BNVA) | payer BC, MEDICAID, SELFPAY | PROVIDERS: PCP Nurse Practitioner Family; Visit Provider Nurse Practitioner Family | DX: Z11.52 Encounter for screening for COVID-19 (principal); R68.89 Other general symptoms and signs | CPT/HCPCS: 87400; 87426 ==

== ENCOUNTER → 2023-06-14 12:00 | Outpatient (BNVA) | payer BC, MEDICAID, SELFPAY | PROVIDERS: PCP Nurse Practitioner Family; Visit Provider Nurse Practitioner Women's Health | DX: Z30.431 Encounter for routine checking of intrauterine contraceptive device (principal); Z30.017 Encounter for initial prescription of implantable subdermal contraceptive | CPT/HCPCS: 81025 ==

== ENCOUNTER 2023-06-28 13:15 | Emergency (ER) | payer BC, MEDICAID, SELFPAY ==
--- NOTE | 2023-06-28 13:22 | W.ED.GENADLT ---
HPI - General Adult General: Stated complaint: ear pain, congestion Time Seen by Provider: 06/28/23 13:21 [facility] ED PFSH: Medical History (Updated 06/14/23 @ 13:10 by Viktoria Hoyt APN, BENEDICTO) Anxiety Dx'd at age 14; inpatient psychiatric treatment. Zoloft has helped her depression but not really her anxiety. She has never been on anything specifically for anxiety. Duodenitis No pertinent past medical history neghx: htn, dm, thyroid, dtv/pe PCP: Wendi Campbell Recurrent major depression in partial remission Surgical History History of tonsillectomy and adenoidectomy (~03/2021) Normal colonoscopy Status post delivery (~04/28/23) Primary LTCS performed by Dr. Michel at [facility]. Dx: term with breech presentation. Family History Grandfather Diabetes Maternal Cancer Paternal--lung Hyperlipidemia Hypertension Colon cancer paternal Grandmother Diabetes Maternal Hyperlipidemia Hypertension Stroke Maternal Denies family history of Ovarian cancer CAD (coronary artery disease) Clotting disorder Chronic kidney disease (CKD) Breast cancer Bleeding disorder Uterine cancer Thyroid disease Social History Smoking and tobacco/nicotine status: former use of tobacco/nicotine Adopted: No Discharge Plan Discharge Condition: Stable Prescriptions: No Action ferrous sulfate 325 mg (65 mg iron) tablet,delayed release (DR/EC) 325 mg PO DAILY sertraline [Zoloft] 50 mg tablet 50 mg PO DAILY Qty: 60 0RF lidocaine-epinephrine (PF) 2 %-1:200,000 solution 3 ml Infiltration ONCE Qty: 1 0RF Nexplanon 68 mg implant 1 implant subdermal ONCE Qty: 1 0RF Referrals: Tg Campbell FNP [Primary Care Provider] - Coding Level of Care Code ED Assignment Desk Assistant for Willisg Ivette
[2023-06-28 13:31] VITALS: BP 116/69; PULSE 90; RESP 18; TEMP 36.6; O2SAT 97; BMI 31.6
[2023-06-28 14:34] LABS: Influenza A by IFA negative (Negative); Influenza B by IFA negative (Negative)
[2023-06-28 14:35] LABS: SARS Covid-2 Antigen negative (Negative)
--- NOTE | 2023-06-28 14:52 | ED_ITS ---
HPI - URI/Sore Throat General: Chief Complaint: Upper Respiratory Infection Stated Complaint: ear pain, congestion Time Seen by Provider: 06/28/23 13:21 History of Present Illness: This patient is a 18-year-old white female who presents to the emergency department with congestion. She states that symptoms have been going on for the past several days. No fever. No cough. Patient has no chronic medical problems. Associated symptoms: Reports nasal congestion Review of Systems General: Reports: 10 or more systems reviewed and unremarkable except in HPI and below ENMT: Reports: nasal congestion PFSH ED PFSH: Medical History Anxiety Dx'd at age 14; inpatient psychiatric treatment. Zoloft has helped her depression but not really her anxiety. She has never been on anything specifically for anxiety. Duodenitis No pertinent past medical history neghx: htn, dm, thyroid, dtv/pe PCP: Wendi Campbell Recurrent major depression in partial remission Surgical History History of tonsillectomy and adenoidectomy (~03/2021) Normal colonoscopy Status post delivery (~04/28/23) Primary LTCS performed by Dr. Michel at [facility]. Dx: term with breech presentation. Family History Grandfather Diabetes Maternal Cancer Paternal--lung Hyperlipidemia Hypertension Colon cancer paternal Grandmother Diabetes Maternal Hyperlipidemia Hypertension Stroke Maternal Denies family history of Ovarian cancer CAD (coronary artery disease) Clotting disorder Chronic kidney disease (CKD) Breast cancer Bleeding disorder Uterine cancer Thyroid disease Social History Smoking and tobacco/nicotine status: former use of tobacco/nicotine Adopted: No Physical Exam Const: COMMON NORMALS: no acute distress, patient oriented x3 and no limitations GENERAL APPEARANCE: cooperative and comfortable HENMT: COMMON NORMALS: normocephalic, atraumatic, Normal nasal mucous membranes and turbinates present, moist oral mucous membranes and oropharynx normal HEAD & SCALP: normal to inspection, normocephalic and atraumatic FACE & SINUS: normal facial exam NOSE: Normal nasal mucous membranes and turbinates present Eye: COMMON NORMALS: Equal, round and reactive pupils present, EOMs intact bilaterally and conjunctivae normal GENERAL EYE: appearance normal, both eyes and all related structures CONJUNCTIVA: Yes conjunctivae normal PUPIL: Yes Equal, round and reactive pupils present Neck/C-Spine: COMMON NORMALS: supple and no JVD Chest: COMMONS NORMALS: normal inspection of the chest Resp: COMMON NORMALS: normal respiratory effort and clear to auscultation bilaterally AUSCULTATION: clear to auscultation bilaterally Cardio: COMMON NORMALS: no JVD, regular rate, regular rhythm, No gallops present (Cardio), No murmurs present (Cardio) and No rub (Cardio) RATE: regular rate RHYTHM: regular rhythm GI: COMMON NORMALS: Normal to inspection, nondistended, normoactive bowel sounds present, Soft to palpation and non-tender AUSCULTATION: Yes normoactive bowel sounds PALPATION: Yes Soft to palpation : COMMON NORMALS: Yes no CVA tenderness BLADDER/KIDNEY EXAM: Yes no CVA tenderness Back/Pelvis: COMMON NORMALS: no CVA tenderness and thoracic and lumbar spine normal to inspection Extremity: COMMON NORMALS: normal to inspection Neuro: COMMON NORMALS: patient oriented x3 and CN's II-XII intact bilaterally Psych: COMMON NORMALS: mental status grossly normal, Normal thought process present and cooperative THOUGHT PROCESS: Normal thought process present Skin: COMMON NORMALS: no rashes or lesions noted, turgor normal and no jaundice GENERAL SKIN EXAM: no rashes or lesions noted and turgor normal Course Vital Signs: Vital signs: Vital Signs Temperature 97.9 F 06/28/23 13:31 Pulse Rate 90 06/28/23 13:31 Respiratory Rate 18 06/28/23 13:31 Blood Pressure 116/69 06/28/23 13:31 Pulse Oximetry 97 06/28/23 13:31 Oxygen Delivery Me thod Room Air 06/28/23 13:31 MDM - URI/Sore Throat Medical Decision Making Patient tested negative for influenza and COVID. She appears to have a viral upper respiratory infection. I recommended [id number] cough and cold medications. Follow-up with primary care physician in 1 week if symptoms have not resolved. She was discharged in stable condition. Lab Data Laboratory Results Influenza Type A Ag negative (Negative) 06/28/23 13:59 Influenza Type B Ag negative (Negative) 06/28/23 13:59 SARS-CoV-2 Ag (Rapid) negative (Negative) 06/28/23 13:59 No radiology studies performed this visit Discharge Plan Discharge Patient Disposition: Home Clinical Impression: Upper respiratory infection Condition: Stable Prescriptions: No Action sertraline [Zoloft] 50 mg tablet 50 mg PO DAILY Qty: 60 0RF Discharge Orders: Discharge ED (Routine); Ordered 06/28/23 Ordered By: Rj Quevedo Referrals: Tg Campbell FNP [Primary Care Provider] - Patient Instructions: Opioid Safety, Pain Management Coding Level of Care Code ED Credit Investigator for Li Steele
== END 2023-06-28 15:15 | disposition home or self-care (01) ==
PROVIDERS: Internal Medicine; Emergency Provider Emergency Medicine; PCP Nurse Practitioner Family
DX: J06.9 Acute upper respiratory infection, unspecified (principal); Z11.52 Encounter for screening for COVID-19; Z87.891 Personal history of nicotine dependence
CPT/HCPCS: 87426; 87804; 99283

== ENCOUNTER → 2023-07-27 15:40 | Outpatient (BNVA) | payer BC, MEDICAID, SELFPAY | PROVIDERS: PCP Nurse Practitioner Family; Visit Provider Nurse Practitioner Family | DX: J06.9 Acute upper respiratory infection, unspecified (principal) | CPT/HCPCS: 87426 ==

== ENCOUNTER → 2023-11-14 15:37 | Outpatient (BNVA) | payer BC, MEDICAID, SELFPAY | PROVIDERS: PCP Nurse Practitioner Family; Visit Provider Registered Nurse | DX: E66.9 Obesity, unspecified (principal); F41.9 Anxiety disorder, unspecified | CPT/HCPCS: 80053; 84443; 85025 ==

== ENCOUNTER → 2025-05-15 14:16 | Outpatient (BNVA) | payer BC, MEDICAID, SELFPAY | PROVIDERS: PCP Nurse Practitioner Family; Visit Provider Obstetrics & Gynecology | DX: N93.0 Postcoital and contact bleeding (principal); N93.9 Abnormal uterine and vaginal bleeding, unspecified | CPT/HCPCS: 87491; 87591; 87624; 87661 ==

== ENCOUNTER → 2025-06-16 08:05 | Outpatient (BNVA) | payer BC, MEDICAID, SELFPAY | PROVIDERS: PCP Nurse Practitioner Family; Visit Provider Obstetrics & Gynecology | DX: R87.619 Unspecified abnormal cytological findings in specimens from cervix uteri (principal) | CPT/HCPCS: 81025; 88305; 88342 ==